=== PATIENT | female | born 1940 | race Caucasian/White ===

== ENCOUNTER 2021-09-12 17:43 | Inpatient (IN) | payer MEDICARE ==
[~2021-09-12] VITALS: Ht 170.2 cm; Wt 84.8 kg
--- NOTE | 2021-09-12 17:45 | NUR ---
SHANE PELAEZ FROM [facility] FOR MEDICAL CLEARANCE PRIOR TO GPS ADMISSION,ON A 5150 HOLD. PLACED COMFORTABLY IN BED. VITALS CHECKED.
[2021-09-12 18:28] LABS: BASOPHILS % (AUTO) 0.9 % (0.0-2.0); EOSINOPHILS % (AUTO) 6.3 % (0.0-6.0); HEMATOCRIT 37 % (33-45); LYMPHOCYTES # (AUTO) 2.1 K/uL (0.8-4.8); LYMPHOCYTES % (AUTO) 40.7 % (20.0-44.0); MEAN CORPUSCULAR HGB CONC 33 g/dl (31.0-36.0); MEAN CORPUSCULAR VOLUME 88 fL (82-100); MONOCYTES # (AUTO) 0.6 K/uL (0.1-1.30); MONOCYTES % (AUTO) 10.8 % (2.0-12.0); NEUTROPHILS # (AUTO) 2.2 K/uL (1.8-8.9); NEUTROPHILS % (AUTO) 41.3 % (43.0-81.0); PLATELET COUNT (AUTO) 346 K/uL (150-450); RED BLOOD CELL COUNT(AUTO) 4.18 MIL/uL (4.0-5.2); WHITE BLOOD COUNT (AUTO) 5.2 K/uL (4.3-11.0)
--- NOTE | 2021-09-12 18:40 | NUR ---
COVID SWAB DONE
--- NOTE | 2021-09-12 18:50 | NUR ---
PATIENT STILL CANNOT PROVIDE URINE SAMPLE DESPITE BEING OFFERED BEDPAN. TRIED DOING IN AND OUT CATHETERIZATION. PATIENT BECAME UPSET. DR JASON MADE AWARE
[2021-09-12 18:55] LABS: CALCIUM, SERUM 9.4 mg/dL (8.5-10.1); CARBON DIOXIDE 25 mmol/L (21-32); CHLORIDE 105 mmol/L (98-107); CREATININE 0.8 mg/dL (0.6-1.3); GLUCOSE 103 mg/dL (74-106); POTASSIUM 3.6 mmol/L (3.5-5.1); SODIUM SERUM 141 mmol/L (136-145); UREA NITROGEN, BLOOD 11 mg/dL (7-18)
[2021-09-12 18:59] LABS: ALANINE AMINOTRANSFERASE 10 U/L (12-78); ALBUMIN 3.6 g/dL (3.4-5.0); ALCOHOL, BLOOD < 3 mg/dL (0-0); ALKALINE PHOSPHATASE 119 U/L (46-116); ASPARTATE AMINOTRANSFERASE 28 U/L (15-37); BILIRUBIN,DIRECT 0.1 mg/dL (0.0-0.2); BILIRUBIN,TOTAL 0.3 mg/dL (0.2-1.0); TOTAL PROTEIN, SERUM 7.6 g/dL (6.4-8.2)
--- NOTE | 2021-09-12 19:06 | NUR ---
WILL OFFER PATIENT BEDPAN AGAIN
--- NOTE | 2021-09-12 19:28 | NUR ---
urine collected and sent to lab
[2021-09-12 19:53] LABS: BILIRUBIN,URINE SMALL (NEGATIVE); COLOR,URINE YELLOW (YELLOW); LEUKOCYTE ESTERASE ,URINE NEGATIVE (NEGATIVE); NITRITE, URINE POSITIVE (NEGATIVE); PROTEIN,URINE TRACE mg/dl (NEGATIVE); UGLUCOSE NEGATIVE (NEGATIVE)
--- NOTE | 2021-09-12 22:30 | NUR ---
CALLED [facility] FOR POSSIBLE TRANSFER OF THE PATIENT TO THEIR PSYCHIATRIC UNIT. PER VALERIE, PULMONARY NURSE PRACTITIONER NO FEMALE BED AVAILABLE
[2021-09-13 08:17] LABS: RBC,URINE 0-2 /HPF (0-2)
[2021-09-13 08:18] LABS: BACTERIA,URINE Few /HPF (None Seen); MUCUS,URINE Moderate /LPF (None Seen); SQUAMOUS EPITHELIAL CELL,UR Few /HPF (None Seen)
--- NOTE | 2021-09-13 08:34 | NUR ---
Awake, Quietly lying in querney. Uncommunicarive -NOT responding to questions stares but NOT answering, Mumbles. Moves/withraws extremities but NOT to command Nurse Knowledge Exchange with SURI Ness. Dr mcknight Aware of BP w/orders for meds
[2021-09-13] MEDS ORDERED: AMLODIPINE BESYLATE 5 MG TABLET ONE (08:49)
--- NOTE | 2021-09-13 08:49 | NUR ---
JOSELITO discussed possible admission to [facility] Nursing Sup.Lucia. Per nursing engine assembly supervisor, the pt. will be admitted to [facility]. JOSELITO notified ED, [place].
--- NOTE | 2021-09-13 08:59 | NUR ---
Medicated with norvasc - pt spat out some of the meds states "its nasty"
[2021-09-13] MEDS ORDERED: AMLODIPINE BESYLATE 5 MG TABLET PO ONE (09:00)
--- NOTE | 2021-09-13 09:45 | NUR ---
RN-ADMISSION NOTES PATIENT WAS BROUGHT IN THE UNIT [facility]IA [facility] WITH TWO [facility] ER STAFF. UPON FACE TO FACE INTERVIEW ,PATIENT AWAKE,ALERT X1 REFUSED TO ANSWER (SELECTIVELY MUTE) MOST OF THE BANK RECONCILIATOR QUESTIONS. PATIENT ON 5150 HOLD FOR DTO AND GD ADULT. PER HOLD PATIENT IS COMBATIVE, DISORIENTED ,REFUSING MEDS. AND CARE NOT SLEEPING AT NIGHT YELLING ,BANGING BARNES AND HEARING VOICES AT THE FACILITY. PATIENT IS UNCOOPERATIVE REFUSED MRSA SWAB DURING THE ADMISSION PROCESS. PATIENT IS A POOR HISTORIAN DAUGHTER NITO [phone] GAVE SOME INFORMATION ABOUT THE PATIENT. PER DTR PATIENT REFUSED COVID VACCINE AND THAT NITO STATED "NO ONE GET COVID VACCINE IN THEIR FAMILY".RUBIA ALMEIDA (PSYCHIATRIST COVERING FOR DR. MEREDITH) AND DR. LAUREN ( CYBER TRANSPORT SYSTEMS SPECIALIST) MADE AWARE OF THE ADMISSION. PATIENT WAS IN BED AWAKE,GUARDED,NO ACUTE DISTRESS NOTED. VITAL SIGNS BP 159/91,P 91,R 18. AND O2 SAT 98% RA.
[2021-09-13] MEDS ORDERED: METO-357 PO (10:07)
[2021-09-13] MEDS ORDERED: HALO2TAB PO (10:07)
[2021-09-13] MEDS ORDERED: ATOR40TA PO (10:07)
[2021-09-13] MEDS ORDERED: LOSA100T31 PO (10:07)
[2021-09-13] MEDS ORDERED: QUET300T2 PO (10:07)
[2021-09-13] MEDS ORDERED: MIRT-119 PO (10:07)
[2021-09-13] MEDS ORDERED: ASPI-1169 PO (10:07)
[2021-09-13] MEDS ORDERED: clonazePAM 0.5 MG TABLET PO PRN (10:30)
[2021-09-13] MEDS ORDERED: BLOOD SUGAR DIAGNOSTIC 1 EACH STRIP IN ONE (10:30)
[2021-09-13] MEDS ORDERED: MAG HYDROX/AL HYDROX/SIMETH 30 ML UDC PO PRN (10:30)
[2021-09-13] MEDS ORDERED: ACETAMINOPHEN 325 MG TABLET PO PRN (10:30)
--- NOTE | 2021-09-13 10:37 | NUR ---
RN-NOTES RUBIA ALMEIDA (COVERING FOR DR. MEREDITH)PSYCHIATRIST MADE AWARE OF THE PATIENT ADMISSION,AND STATED HE WILL SEE THE PATIENT TOMORROW. DR. LAUREN ALSO MADE AWARE( COMPONENT LAB TECH) OF THE ADMISSION.
--- NOTE | 2021-09-13 10:42 | NUR ---
JOSELITO Initial Discharge Plan: Patient currently resides at [facility] located at [address] [place] [address]; ([phone]). JOSELITO spoke with admin Maycol ([phone]) who stated that they are unable to take care of pt and that pt needs a nursing facility. Maycol reported that daughter Turner ([phone]) wants a nursing facility. JOSELITO will work with the MD, treatment team, and family to help coordinate appropriate discharge.
--- NOTE | 2021-09-13 10:42 | NUR ---
JOSELITO Family Contact: JOSELITO contacted pt's daughter Turner ([phone]) and discussed treatment plan. Daughter stated that pt cannot return back to her B & C due to pt requiring higher level of care. Daughter expressed if this curriculum writer can help with placement. SW reported she will help with placement and will give nursing facility options.
--- NOTE | 2021-09-13 10:43 | NUR ---
JOSELITO Clinical Note: Patient placed on a 5150 hold for GD and danger to others. Pt was aggressive at her B & C and was non-compliant with her medications. Patient currently resides at [facility] and [facility] called [facility] located at [address] [place] [address]; ([phone]). JOSELITO spoke with admin Maycol ([phone]) who stated that they are unable to take care of pt and that pt needs a nursing facility. Maycol reported that daughter Turner ([phone]) wants a nursing facility. JOSELITO spoke with pt's daughter Turner ([phone]) and she reported that she would want pt to go to a nursing facility.
[2021-09-13 16:00] VITALS: BP 163/91
--- NOTE | 2021-09-13 18:23 | NUR ---
RN-NOTES PATIENT LAYING IN BED AWAKE,ALERT X1,GUARDED,SELECTIVELY MUTE AT THIS TIME. PATIENT REFUSED TO EAT DESPITE THE ENCOURAGEMENT,EXPLANATIONS RISK AND BENEFITS . PATIENT ABLE TO TALK IF SHE WANT TOO WITH CLEAR SPEECH.GOOD KARI CARE RENDERED. PATIENT INDEPENDENTLY MOVING IN BED. ALL NEEDS ATTENDED AND ANTICIPATED.WILL CONT. MONITORING FOR SAFETY AND BEHAVIOR. WILL ENDORSE TO INCOMING NURSE FOR CONTINUITY OF CARE.
[2021-09-13 20:00] VITALS: BP 140/82
--- NOTE | 2021-09-13 20:05 | NUR ---
RN NOTES: PATIENT IN BED RESTING , NO S/SX OF ACUTE DISTRESS NOTED. EASILY AGITATED, PARANOID, DISORGNIZED, DISHEVELED, UNKEMPT ,ENCOURAGED PT. TO VERBALIZATION OF THOUGHTS AND FEELINGS. SAFETY PRECAUTIONS IN PLACE. WILL CONTINUE TO MONITOR Q15MIN ROUNDS FOR SAFETY AND BEHAVIOR.
[2021-09-13] MEDS: ATORVASTATIN 40 MG TABLET PO SCH (21:18)
--- NOTE | 2021-09-14 06:47 | NUR ---
RN NOTES: PT. REFUSED LABS WORK DRAW, DESPITE EXPLAINING THE IMPORTANCE. PT. STRONGLY REFUSED .PT. BEHAVIOR UNCOOERTIVE ,PARANOID ,TRYING TO HITTING THE STAFF , ALL NEEDS ATTENDED AND ANTICIPATED ,WILL CONTINUITY WITH CARE
[2021-09-14 08:00] VITALS: BP 162/77
[2021-09-14] MEDS: ENSURE ENLIVE CHOC 237 ML CAN PO SCH ×2 (08:00→17:00)
[2021-09-14] MEDS ORDERED: Medication Not On Formulary EA (Losartan Potassium 100 MG) PO SCH (09:00)
[2021-09-14] MEDS: ASPIRIN 81 MG TAB.CHEW PO SCH (09:00)
[2021-09-14] MEDS: LOSARTAN POTASSIUM 50 MG TABLET PO SCH (09:00)
[2021-09-14] MEDS: METOPROLOL SUCCINATE 50 MG TAB.SR.24H PO SCH (09:00)
--- NOTE | 2021-09-14 10:22 | NUR ---
RN-NOTES PATIENT REFUSED TO EAT BREAKFAST AND ALL 0900 AM MEDICATIONS DESPITE ENCOURAGEMENT,EXPLANATIONS RISK AND BENEFITS. BP 162/77,P 72. STATED "I DON'T WANT TO PUT ANYTHING IN MY STOMACH". OFFERED X3. DR. LAUREN MADE AWARE OF THE REFUSAL.
[2021-09-14 16:00] VITALS: BP 163/86
[2021-09-14 17:25] LABS: ALBUMIN 3.6 g/dL (3.4-5.0); BILIRUBIN,TOTAL 0.4 mg/dL (0.2-1.0); CALCIUM, SERUM 9.7 mg/dL (8.5-10.1); CREATININE 0.9 mg/dL (0.6-1.3); POTASSIUM 3.8 mmol/L (3.5-5.1); TOTAL PROTEIN, SERUM 8.1 g/dL (6.4-8.2)
[2021-09-14 17:27] LABS: CHOLESTEROL 214 mg/dL (<200); HDL CHOLESTEROL 57 mg/dL (40-60); LDL 131 mg/dL (0-99); TRIGLYCERIDES 77 mg/dL (30-150)
[2021-09-14] MEDS: Z GUARD REMEDY 4 OZ OINT TP SCH (18:13)
--- NOTE | 2021-09-14 18:53 | NUR ---
RN-NOTES PATIENT LAYING IN BED AWAKE,ALERT X1,GUARDED,MINIMAL INTERACTIONS WITH STAFF. PATIENT REFUSED TO EAT BREAKFAST AND LUNCH DESPITE THE ENCOURAGEMENT . NOTED WITH AGGRESSIVE( HITTING) BEHAVIOR TOWARDS STAFF DURING CARE . NON COMPLIANT WITH MEDICATIONS .PATIENT INDEPENDENTLY MOVING IN BED. ALL NEEDS ATTENDED AND ANTICIPATED.WILL CONT. MONITORING FOR SAFETY AND BEHAVIOR. WILL ENDORSE TO INCOMING NURSE FOR CONTINUITY OF CARE.
--- NOTE | 2021-09-14 19:58 | NUR ---
RN NOTES: PATIENT IN BED RESTING , NO S/SX OF ACUTE DISTRESS NOTED. EASILY AGITATED,AGGRESSIVE BEHAVIOR TOWARDS STAFF DURING CARE , PARANOID, DISORGNIZED, DISHEVELED, UNKEMPT, NON COMPLY WITH CARE ,ENCOURAGED PT. TO VERBALIZATION OF THOUGHTS AND FEELINGS. SAFETY PRECAUTIONS IN PLACE. WILL CONTINUE TO MONITOR Q15MIN ROUNDS FOR SAFETY AND BEHAVIOR.
[2021-09-14 20:00] VITALS: BP 143/82
[2021-09-14] MEDS: QUETIAPINE FUMARATE 100 MG TABLET PO SCH (21:23)
[2021-09-14] MEDS: ATORVASTATIN 40 MG TABLET PO SCH (21:24)
--- NOTE | 2021-09-14 21:33 | NUR ---
RN NOTES: ENCOURAGED PT. TO TAKE NIGHT PO SCHEDULE MEDS , PT. TOOK PO NIGHT MEDS, PT. COMPLIANT WITH MEDS AT THIS TIME, OFFER SNACKS PO FLUIDS TOLERATE , PT. EATING INDEPDENTLY , PER PT. I LIKED SNACKS.
[2021-09-15 08:00] VITALS: BP 149/74
[2021-09-15] MEDS: ENSURE ENLIVE CHOC 237 ML CAN PO SCH ×2 (08:00→17:00)
--- NOTE | 2021-09-15 08:50 | NUR ---
GPS/RN RECEIVED PT RESTING IN HER BED EASILY AROUSED, GUARDED MINIMAL INTERACTIONS WITH STAFF. PT REFUSED BREAKFAST AND AM MEDS .NEEDS MINIMAL ASSIST WITH ADL'S. ABLE TO MOVE INDEPENDENTLY IN THE BED.ALL NEEDS ATTENDED AND ANTICIPATED. WILL CONTINUE TO MONITOR Q15MIN FOR SAFETY AND BEHAVIOR.
[2021-09-15] MEDS: ASPIRIN 81 MG TAB.CHEW PO SCH (09:00)
[2021-09-15] MEDS: METOPROLOL SUCCINATE 50 MG TAB.SR.24H PO SCH (09:00)
[2021-09-15] MEDS: LOSARTAN POTASSIUM 50 MG TABLET PO SCH (09:00)
[2021-09-15] MEDS: QUETIAPINE FUMARATE 100 MG TABLET PO SCH ×2 (09:00→17:00)
--- NOTE | 2021-09-15 10:13 | NUR ---
GPS/RN PT REFUSED AM MEDS OFFERED X3. PT NOT RESPONDING TO NURSING STUFF AND MD. NO ACUTE DISTRESS NOTED. VSS.
[2021-09-15] MEDS: Z GUARD REMEDY 4 OZ OINT TP SCH ×2 (13:19→18:30)
[2021-09-15 16:00] VITALS: BP 147/80
[2021-09-15 20:12] VITALS: BP_SYST 139; BP_SYST 154; BP_DIAS 74; BP_DIAS 90
[2021-09-15] MEDS: ATORVASTATIN 40 MG TABLET PO SCH (21:30)
[2021-09-16 08:00] VITALS: BP 150/77
[2021-09-16] MEDS: ENSURE ENLIVE CHOC 237 ML CAN PO SCH ×2 (08:00→17:00)
[2021-09-16] MEDS: ASPIRIN 81 MG TAB.CHEW PO SCH (08:32)
[2021-09-16] MEDS: Z GUARD REMEDY 4 OZ OINT TP SCH ×2 (08:32→21:45)
[2021-09-16] MEDS: METOPROLOL SUCCINATE 50 MG TAB.SR.24H PO SCH (08:33)
[2021-09-16] MEDS: LOSARTAN POTASSIUM 50 MG TABLET PO SCH (08:33)
[2021-09-16] MEDS: QUETIAPINE FUMARATE 100 MG TABLET PO SCH ×2 (08:33→17:00)
[2021-09-16 16:00] VITALS: BP 148/69
--- NOTE | 2021-09-16 19:44 | NUR ---
GPS RN OPENING NOTES: RECEIVED PATIENT LAYING IN BED, AWAKE, A/O X1, FLAT AFFECT, PASSIVE, WITHDRAWN, ISOLATIVE, DISORGANIZED, CONFUSED, NO S/S OF DISTRESS. RESPIRATION EVEN AND UNLABORED WITH EQUAL RISE AND FALL OF THE CHEST, ON ROOM AIR. OFFERED FLUID AND SNACKS TOLERATED. BED IN LOW LOCKED POSITION, SIDE RAILS UP X2 FOR SAFETY, CALL BOYD WITHIN REACH. WILL CONTINUE TO MONITOR Q15 FOR MOOD, SAFETY AND BEHAVIOR.
[2021-09-16 20:14] VITALS: BP 145/72
[2021-09-16] MEDS: ATORVASTATIN 40 MG TABLET PO SCH (22:00)
--- NOTE | 2021-09-16 22:29 | NUR ---
GPS RN NOTES: PATIENT SPIT OUT 2200 LIPITOR 40MG PO ORDERED THEN TOLD NURSE "YOU TAKE IT". MEDICATION WASTED PER PROTOCOL.
--- NOTE | 2021-09-16 23:31 | NUR ---
GPS RN NOTES: PATIENT REFUSED WEEKLY SKIN ASSESSMENT. PER PATIENT "DON'T TOUCH ME".
--- NOTE | 2021-09-17 06:51 | NUR ---
GPS RN CLOSING NOTES: PATIENT CURRENTLY SLEEPING IN BED. PATIENT SLEPT 9HRS THIS SHIFT. NO S/S OF DISTRESS. RESPIRATION EVEN AND UNLABORED WITH EQUAL RISE AND FALL OF THE CHEST, ON ROOM AIR. BED IN LOW LOCKED POSITION, SIDE RAILS UP X2 FOR SAFETY, CALL BOYD WITHIN REACH. ALL PATIENT CARE NEEDS HAVE BEEN MET ANTICIPATED. WILL CONTINUE TO MONITOR Q15 FOR SAFETY, MOOD AND BEHAVIOR AND ENDORSE TO AM SHIFT.
[2021-09-17 08:00] VITALS: BP 134/61
[2021-09-17] MEDS: ENSURE ENLIVE CHOC 237 ML CAN PO SCH ×3 (08:00→16:05)
[2021-09-17] MEDS: LOSARTAN POTASSIUM 50 MG TABLET PO SCH (08:20)
[2021-09-17] MEDS: ASPIRIN 81 MG TAB.CHEW PO SCH (08:20)
[2021-09-17] MEDS: METOPROLOL SUCCINATE 50 MG TAB.SR.24H PO SCH (08:21)
[2021-09-17] MEDS: QUETIAPINE FUMARATE 100 MG TABLET PO SCH ×2 (08:22→16:04)
--- NOTE | 2021-09-17 09:13 | NUR ---
RN-CO: Patient is awake, denied pain and discomforts. Refused all her morning medications inspite of my encouragment. She is confused and needs assistance with ADL. We will continue to monitor.
[2021-09-17] MEDS: Z GUARD REMEDY 4 OZ OINT TP SCH ×2 (09:23→17:44)
--- NOTE | 2021-09-17 13:27 | NUR ---
RN-CO: Patient is awake, denied pain and discomforts. Refused all her morning medications in spite of my encouragement. She is confused and needs assistance with ADL. DR Avilez seen and examined the patient and filed the [place] petition. RN faxed it to [address] this morning.
[2021-09-17 16:00] VITALS: BP 138/94
--- NOTE | 2021-09-17 19:48 | NUR ---
GPS RN OPENING NOTES: RECEIVED PATIENT SITTING IN YING CHAIR IN HALLWAY. A/O X1, FLAT AFFECT, PASSIVE, WITHDRAWN, DISORGANIZED, CONFUSED, GIVES INAPPROPRIATE ANSWERS TO QUESTIONS AND SMILES. NO S/S OF DISTRESS. RESPIRATION EVEN AND UNLABORED WITH EQUAL RISE AND FALL OF THE CHEST, ON ROOM AIR. OFFERED FLUID AND SNACKS TOLERATED. WILL CONTINUE TO MONITOR Q15 FOR MOOD, SAFETY AND BEHAVIOR.
[2021-09-17] MEDS: ATORVASTATIN 40 MG TABLET PO SCH (22:00)
--- NOTE | 2021-09-17 22:08 | NUR ---
GPS RN NOTES: PATIENT REFUSED 2200 LIPITOR 40MG PO ORDERED. MEDICATION RETURNED TO [facility].
[2021-09-17 22:21] VITALS: BP 140/96
[2021-09-18 06:35] VITALS: BP 140/96
--- NOTE | 2021-09-18 07:00 | NUR ---
GPS RN CLOSING NOTES: PATIENT CURRENTLY SLEEPING IN BED. PATIENT SLEPT 5HRS THIS SHIFT. NO S/S OF DISTRESS. RESPIRATION EVEN AND UNLABORED WITH EQUAL RISE AND FALL OF THE CHEST, ON ROOM AIR. BED IN LOW LOCKED POSITION, SIDE RAILS UP X2 FOR SAFETY, CALL BOYD WITHIN REACH. ALL PATIENT CARE NEEDS HAVE BEEN MET ANTICIPATED. WILL CONTINUE TO MONITOR Q15 FOR SAFETY, MOOD AND BEHAVIOR AND ENDORSE TO AM SHIFT.
[2021-09-18 08:00] VITALS: BP 150/79
[2021-09-18] MEDS: ENSURE ENLIVE CHOC 237 ML CAN PO SCH ×2 (08:00→16:58)
[2021-09-18] MEDS: LOSARTAN POTASSIUM 50 MG TABLET PO SCH (08:19)
[2021-09-18] MEDS: ASPIRIN 81 MG TAB.CHEW PO SCH (08:19)
[2021-09-18] MEDS: METOPROLOL SUCCINATE 50 MG TAB.SR.24H PO SCH (08:20)
[2021-09-18] MEDS: Z GUARD REMEDY 4 OZ OINT TP SCH ×2 (08:22→16:18)
[2021-09-18] MEDS: QUETIAPINE FUMARATE 100 MG TABLET PO SCH ×3 (09:00→16:19)
--- NOTE | 2021-09-18 14:10 | NUR ---
COURT: JOSELITO SPOKE WITH COURT ([phone]) AND SPOKE WITH CHRIS WHO STATED RIESE WILL BE SCHEDULED AT 9:30AM.
--- NOTE | 2021-09-18 14:18 | NUR ---
in dining rm. most of day,quiet.
[2021-09-18 16:00] VITALS: BP 133/90
--- NOTE | 2021-09-18 19:35 | NUR ---
GPS RN OPENING NOTES: RECEIVED PATIENT SITTING IN YING CHAIR IN HALLWAY. A/O X1, FLAT AFFECT, PASSIVE, WITHDRAWN, DISORGANIZED, CONFUSED, GIVES INAPPROPRIATE ANSWERS TO QUESTIONS, DIFFICULT TO REDIRECT. PATIENT CONDITION REMAINS THE SAME. NO S/S OF DISTRESS. RESPIRATION EVEN AND UNLABORED WITH EQUAL RISE AND FALL OF THE CHEST, ON ROOM AIR. OFFERED FLUID AND SNACKS TOLERATED. WILL CONTINUE TO MONITOR Q15 FOR MOOD, SAFETY AND BEHAVIOR.
[2021-09-18] MEDS: ATORVASTATIN 40 MG TABLET PO SCH (22:00)
--- NOTE | 2021-09-18 22:03 | NUR ---
GPS RN NOTES: PATIENT REFUSED 2200 LIPITOR 40MG PO ORDERED.
[2021-09-18 23:44] VITALS: BP 118/82
--- NOTE | 2021-09-19 06:58 | NUR ---
GPS RN CLOSING NOTES: PATIENT CURRENTLY SLEEPING IN BED. PATIENT SLEPT 8HRS THIS SHIFT. NO S/S OF DISTRESS. RESPIRATION EVEN AND UNLABORED WITH EQUAL RISE AND FALL OF THE CHEST, ON ROOM AIR. BED IN LOW LOCKED POSITION, SIDE RAILS UP X2 FOR SAFETY, CALL BOYD WITHIN REACH. ALL PATIENT CARE NEEDS HAVE BEEN MET ANTICIPATED. WILL CONTINUE TO MONITOR Q15 FOR SAFETY, MOOD AND BEHAVIOR AND ENDORSE TO AM SHIFT.
[2021-09-19 08:00] VITALS: BP 149/63
[2021-09-19] MEDS: ENSURE ENLIVE CHOC 237 ML CAN PO SCH ×2 (08:00→16:41)
[2021-09-19] MEDS: METOPROLOL SUCCINATE 50 MG TAB.SR.24H PO SCH (08:06)
[2021-09-19] MEDS: ASPIRIN 81 MG TAB.CHEW PO SCH (08:06)
[2021-09-19] MEDS: QUETIAPINE FUMARATE 100 MG TABLET PO SCH ×2 (08:07→17:00)
[2021-09-19] MEDS: LOSARTAN POTASSIUM 50 MG TABLET PO SCH (08:07)
--- NOTE | 2021-09-19 09:51 | NUR ---
RN-CO: RECEIVED A TELEPHONE ORDER FROM DR MEREDITH. PATIENT IS RIESED, GIVE HALDOL 5 MG IM PRN EACH REFUSAL OF SEROQUEL PO BID., NOTED AND CARRIED OUT.
[2021-09-19] MEDS: Z GUARD REMEDY 4 OZ OINT TP SCH ×2 (09:55→16:43)
[2021-09-19] MEDS: HALOPERIDOL LACTATE INJ 5 MG/ML VIAL IM PRN ×2 (12:25→17:45)
--- NOTE | 2021-09-19 12:25 | NUR ---
RN-CO: Patient is delusional and paranoid, she believes her daughter needs the medicine that is suppose to be hers. She has flight of ideas. Haldol 5 mg IM was given because she refused Seroquel by mouth.
[2021-09-19 16:00] VITALS: BP 140/88
--- NOTE | 2021-09-19 19:13 | NUR ---
GP RN NOTES RECEIVED PATIENT IN THE DINING ROOM SITTING IN YING CHAIR. ALERT AND ORIENTED X1, NO S/SX OF ACUTE DISTRESS NOTED. PATIENT REMAINS CONFUSED, PASSIVE, DISORGANIZED, REDIRECTABLE. SAFETY PRECAUTIONS IN PLACE. WILL CONTINUE TO MONITOR Q15 MIN ROUNDS FOR SAFETY AND BEHAVIOR.
[2021-09-19 20:00] VITALS: BP 143/76
[2021-09-19] MEDS: ATORVASTATIN 40 MG TABLET PO SCH (21:22)
--- NOTE | 2021-09-19 21:22 | NUR ---
GPS RN NOTES PATIENT REFUSED LIPITOR DOSE FOR TONIGHT. EXPLAINED RISKS/BENEFITS. PATIENT CONTINUED TO REFUSE.
[2021-09-20 08:00] VITALS: BP 146/71
[2021-09-20] MEDS: ENSURE ENLIVE CHOC 237 ML CAN PO SCH ×2 (08:00→16:23)
[2021-09-20] MEDS: METOPROLOL SUCCINATE 50 MG TAB.SR.24H PO SCH (09:00)
[2021-09-20] MEDS: LOSARTAN POTASSIUM 50 MG TABLET PO SCH (09:00)
[2021-09-20] MEDS: QUETIAPINE FUMARATE 100 MG TABLET PO SCH ×2 (09:00→16:20)
[2021-09-20] MEDS: ASPIRIN 81 MG TAB.CHEW PO SCH (09:00)
[2021-09-20] MEDS: Z GUARD REMEDY 4 OZ OINT TP SCH ×2 (09:24→17:21)
[2021-09-20] MEDS: HALOPERIDOL LACTATE INJ 5 MG/ML VIAL IM PRN (10:21)
--- NOTE | 2021-09-20 10:22 | NUR ---
RN-NOTES PATIENT REFUSED ALL 0900AM MEDICATIONS INCLUDING SEROQUEL 300MG P.O DESPITE EXPLANATIONS RISK AND BENEFITS. HALDOL 5MG IM GIVEN ORDERED. PATIENT IS RIESED. GIVEN AT THE RIGHT BUTTOCK.
[2021-09-20 16:00] VITALS: BP 139/63
--- NOTE | 2021-09-20 17:22 | NUR ---
RN-NOTES PATIENT IN THE DAY ROOM AWAKE,ALERT X1,GUARDED,CALM AND QUIET.TOOK 1700 P.O MEDICATIONS. PATIENT INDEPENDENTLY MOVING IN BED. NEEDS MINIMAL ASSIST WITH AMBULATIONS. ALL NEEDS ATTENDED AND ANTICIPATED.WILL CONT. MONITORING FOR SAFETY AND BEHAVIOR. WILL ENDORSE TO INCOMING NURSE FOR CONTINUITY OF CARE.
[2021-09-20 20:00] VITALS: BP 128/85
--- NOTE | 2021-09-20 20:41 | NUR ---
RN NOTES: PATIENT WATCHING TV IN ACTIVITY ROOM , NO S/SX OF ACUTE DISTRESS NOTED. EASILY AGITATED , PARANOID, DISORGNIZED, DISHEVELED, UNKEMPT, ,ENCOURAGED PT. TO VERBALIZATION OF THOUGHTS AND FEELINGS. SAFETY PRECAUTIONS IN PLACE. WILL CONTINUE TO MONITOR Q15MIN ROUNDS FOR SAFETY AND BEHAVIOR.
[2021-09-20] MEDS: ATORVASTATIN 40 MG TABLET PO SCH (21:16)
[2021-09-21 08:00] VITALS: BP 132/61
[2021-09-21] MEDS: ENSURE ENLIVE CHOC 237 ML CAN PO SCH ×2 (08:08→16:58)
--- NOTE | 2021-09-21 08:45 | NUR ---
SNF Referral: JOSELITO sent clinicals to [facility] ([phone]) for placement in the [place] location, per family request. JOSELITO sent H & P, progress notes, and medication list.
[2021-09-21] MEDS: ASPIRIN 81 MG TAB.CHEW PO SCH (08:50)
[2021-09-21] MEDS: QUETIAPINE FUMARATE 100 MG TABLET PO SCH ×2 (08:50→16:56)
[2021-09-21] MEDS: LOSARTAN POTASSIUM 50 MG TABLET PO SCH (08:59)
[2021-09-21] MEDS: METOPROLOL SUCCINATE 50 MG TAB.SR.24H PO SCH (09:00)
[2021-09-21] MEDS: Z GUARD REMEDY 4 OZ OINT TP SCH ×2 (09:01→16:58)
--- NOTE | 2021-09-21 09:23 | NUR ---
SNF Contact: SW received a call from Slime cheng from [facility] ([phone]) who stated that pt is accepted.
[2021-09-21 16:00] VITALS: BP 119/59
--- NOTE | 2021-09-21 17:27 | NUR ---
RN-NOTES PATIENT IN THE DAY ROOM AWAKE,ALERT X1,GUARDED,CALM AND QUIET.COMPLIANT WITH P.O MEDICATIONS. PATIENT INDEPENDENTLY MOVING IN BED. NEEDS MINIMAL ASSIST WITH AMBULATIONS. ALL NEEDS ATTENDED AND ANTICIPATED.WILL CONT. MONITORING FOR SAFETY AND BEHAVIOR. WILL ENDORSE TO INCOMING NURSE FOR CONTINUITY OF CARE.
[2021-09-21 20:00] VITALS: BP 113/64
--- NOTE | 2021-09-21 20:59 | NUR ---
RN NOTE: PATIENT AWAKE ALERT , NO S/SX OF ACUTE DISTRESS NOTED.ANXIOUS EASILY AGITATED , PARANOID, DISORGNIZED,GUARDED UNKEMPT,NEEDS FREQUENTLY REDIRECTIONS ,ENCOURAGED PT. TO VERBALIZATION OF THOUGHTS AND FEELINGS. SAFETY PRECAUTIONS IN PLACE. WILL CONTINUE TO MONITOR Q15MIN ROUNDS FOR SAFETY AND BEHAVIOR.
[2021-09-21] MEDS: ATORVASTATIN 40 MG TABLET PO SCH (21:04)
--- NOTE | 2021-09-22 06:34 | NUR ---
RN NOTE: PATIENT SLEPT 7 HRS THIS SHIFT , NO S/SX OF ACUTE DISTRESS NOTED.ANXIOUS EASILY AGITATED , PARANOID, DISORGNIZED,GUARDED ,NEEDS FREQUENTLY REDIRECTIONS ,ALL NEEDS ATTENDED AND ANTICIPATED ,ENCOURAGED PT. TO VERBALIZATION OF THOUGHTS AND FEELINGS. SAFETY PRECAUTIONS IN PLACE. WILL CONTINUE TO MONITOR Q15MIN ROUNDS FOR SAFETY AND BEHAVIOR.
[2021-09-22 08:04] VITALS: BP 115/67
[2021-09-22] MEDS: ENSURE ENLIVE CHOC 237 ML CAN PO SCH ×2 (08:12→17:17)
[2021-09-22] MEDS: LOSARTAN POTASSIUM 50 MG TABLET PO SCH (08:13)
[2021-09-22] MEDS: ASPIRIN 81 MG TAB.CHEW PO SCH (08:13)
[2021-09-22] MEDS: METOPROLOL SUCCINATE 50 MG TAB.SR.24H PO SCH (08:13)
[2021-09-22] MEDS: QUETIAPINE FUMARATE 100 MG TABLET PO SCH ×2 (08:13→16:26)
[2021-09-22] MEDS: Z GUARD REMEDY 4 OZ OINT TP SCH ×2 (08:50→16:26)
--- NOTE | 2021-09-22 09:30 | NUR ---
RN Notes: Received pt. asleep in the ramírez chair in the hallway and sign of distress noted. Ate 25% for breakfast and compliant on meds. Pt. is confused and disoriented and morning care rendered. Pt. reoriented to person, place, date, day and situation. Will continue to monitor for safety.
[2021-09-22 16:00] VITALS: BP 124/63
--- NOTE | 2021-09-22 20:26 | NUR ---
RN Notes: Pt Received in the ramírez chair in the hallway awaked calm and quit no sign sob/distress noted.nno sign of harm self or others.safety measure in place.Will continue to monitor.
[2021-09-22] MEDS: ATORVASTATIN 40 MG TABLET PO SCH (21:06)
[2021-09-23 00:16] VITALS: BP 115/68
[2021-09-23] MEDS: ENSURE ENLIVE CHOC 237 ML CAN PO SCH ×3 (08:00→17:28)
[2021-09-23] MEDS: QUETIAPINE FUMARATE 100 MG TABLET PO SCH ×2 (09:00→16:09)
[2021-09-23] MEDS: LOSARTAN POTASSIUM 50 MG TABLET PO SCH (09:00)
[2021-09-23] MEDS: Z GUARD REMEDY 4 OZ OINT TP SCH ×2 (09:00→16:05)
[2021-09-23] MEDS: METOPROLOL SUCCINATE 50 MG TAB.SR.24H PO SCH (09:00)
[2021-09-23] MEDS: ASPIRIN 81 MG TAB.CHEW PO SCH (09:00)
[2021-09-23] MEDS: HALOPERIDOL LACTATE INJ 5 MG/ML VIAL IM PRN ×2 (10:57→16:10)
--- NOTE | 2021-09-23 11:12 | NUR ---
RN-CO: Patient refused breakfast, just woke up and refused all po medications. She is angry and uncooperative to care. Haldol 5 mg IM given for refusing of Seroquel PO.
--- NOTE | 2021-09-23 11:32 | NUR ---
RN-CO: Patient is combative and refused morning care.
--- NOTE | 2021-09-23 15:40 | NUR ---
RN-CO: Patient refused vital signs, she is agitated at this time .
--- NOTE | 2021-09-23 16:10 | NUR ---
RN-CO: HALDOL 5 MG IM GIVEN FOR REFUSAL OF SEROQUEL 300 MG PO.
--- NOTE | 2021-09-23 16:50 | NUR ---
RN-CO: Patient refused vital sign.
[2021-09-23 17:02] VITALS: BP 156/91
[2021-09-23 19:46] VITALS: BP 133/59
[2021-09-23] MEDS: ATORVASTATIN 40 MG TABLET PO SCH (21:44)
[2021-09-23] MEDS: TEMAZEPAM 7.5 MG CAPSULE PO PRN (21:44)
[2021-09-24 08:00] VITALS: BP 110/59
[2021-09-24] MEDS: ENSURE ENLIVE CHOC 237 ML CAN PO SCH ×2 (08:00→17:00)
[2021-09-24] MEDS: ASPIRIN 81 MG TAB.CHEW PO SCH (08:39)
[2021-09-24] MEDS: LOSARTAN POTASSIUM 50 MG TABLET PO SCH (08:40)
[2021-09-24] MEDS: METOPROLOL SUCCINATE 50 MG TAB.SR.24H PO SCH (08:40)
[2021-09-24] MEDS: QUETIAPINE FUMARATE 100 MG TABLET PO SCH ×2 (08:40→17:00)
[2021-09-24] MEDS: Z GUARD REMEDY 4 OZ OINT TP SCH ×2 (08:41→17:00)
[2021-09-24] MEDS: HALOPERIDOL LACTATE INJ 5 MG/ML VIAL IM PRN ×2 (08:46→17:54)
[2021-09-24 16:00] VITALS: BP 139/90
[2021-09-24 19:51] VITALS: BP 126/72
[2021-09-24] MEDS: ATORVASTATIN 40 MG TABLET PO SCH (22:00)
[2021-09-25 08:00] VITALS: BP 121/88
[2021-09-25] MEDS: ENSURE ENLIVE CHOC 237 ML CAN PO SCH ×2 (08:15→17:00)
--- NOTE | 2021-09-25 08:55 | NUR ---
Individual Therapy: SW attempted to conduct therapy. Pt was blankly staring and did not respond to this group underwriter. SW unable to conduct therapy at this time.
[2021-09-25] MEDS: QUETIAPINE FUMARATE 100 MG TABLET PO SCH ×2 (09:04→17:00)
[2021-09-25] MEDS: METOPROLOL SUCCINATE 50 MG TAB.SR.24H PO SCH (09:04)
[2021-09-25] MEDS: ASPIRIN 81 MG TAB.CHEW PO SCH (09:04)
[2021-09-25] MEDS: LOSARTAN POTASSIUM 50 MG TABLET PO SCH (09:05)
[2021-09-25] MEDS: Z GUARD REMEDY 4 OZ OINT TP SCH ×2 (09:06→17:03)
--- NOTE | 2021-09-25 10:14 | NUR ---
RN-CO: Received patient in the hallway in a pleasant mood, she denied pain and discomforts. She took her morning medications which most of the time she was refusing. I will continue to monitor.
[2021-09-25] MEDS ORDERED: HALOPERIDOL DECANOATE IM 100 MG/ML AMPUL IM ONE (13:00)
--- NOTE | 2021-09-25 13:29 | NUR ---
RN-CO: HALDOL DECANOATE 50 MG IM GIVEN ON LEFT DELTOID.
[2021-09-25 16:00] VITALS: BP 116/71
[2021-09-25] MEDS: MAGNESIUM HYDROXIDE 30 ML UDC PO PRN (18:12)
--- NOTE | 2021-09-25 19:12 | NUR ---
GPS RN NOTES RECEIVED PATIENT IN THE HALLWAY SITTING IN A GERIATRIC CHAIR. ALERT AND ORIENTED X1, NO S/SX OF ACUTE DISTRESS NOTED. PATIENT REMAINS CONFUSED, INTERACTIVE WHEN ENGAGED, LABILE. REORIENTATION PROVIDED. SAFETY PRECAUTIONS IN PLACE. WILL CONTINUE TO MONITOR Q15 MIN ROUNDS FOR SAFETY AND BEHAVIOR.
[2021-09-25 19:22] VITALS: BP 143/72
[2021-09-25] MEDS: ATORVASTATIN 40 MG TABLET PO SCH (21:25)
[2021-09-25] MEDS: TEMAZEPAM 7.5 MG CAPSULE PO PRN (23:25)
[2021-09-26] MEDS: ENSURE ENLIVE CHOC 237 ML CAN PO SCH ×2 (07:50→16:04)
[2021-09-26 08:00] VITALS: BP 138/70
[2021-09-26] MEDS: Z GUARD REMEDY 4 OZ OINT TP SCH ×2 (09:00→16:24)
[2021-09-26] MEDS: LOSARTAN POTASSIUM 50 MG TABLET PO SCH (09:23)
[2021-09-26] MEDS: QUETIAPINE FUMARATE 100 MG TABLET PO SCH ×2 (09:23→16:25)
[2021-09-26] MEDS: ASPIRIN 81 MG TAB.CHEW PO SCH (09:24)
[2021-09-26] MEDS: METOPROLOL SUCCINATE 50 MG TAB.SR.24H PO SCH (09:24)
--- NOTE | 2021-09-26 09:29 | NUR ---
JOSELITO Family Contact: SW contacted pt's daughter Turner ([phone]) who stated that pt is accepted at [facility] and she was agreeable of this.
--- NOTE | 2021-09-26 13:35 | NUR ---
RN-CO: Patient is in the dining room , awake, and calm, She is somewhat better. She ate her lunch well.
[2021-09-26 16:00] VITALS: BP 143/81
[2021-09-26] MEDS: MAGNESIUM HYDROXIDE 30 ML UDC PO PRN (17:51)
--- NOTE | 2021-09-26 17:52 | NUR ---
RN-CO: Patient as no bowel movement for 3 days per records. Offered MOM x3 but refused and got agitated.
--- NOTE | 2021-09-26 19:40 | NUR ---
GPS RN OPENING NOTES: RECEIVED PATIENT SITTING IN YING CHAIR IN HALLWAY. A/O X1, PASSIVE, WITHDRAWN, DISORIENTED. WHEN ASKED, HOW ARE YOU FEELING, PATIENT RESPONDED "I FEEL BETTER" AND THEN SMILED. PATIENT WAS INFORMED SHE WILL BE DISCHARGED TOMORROW AND WAS HAPPY SAYING "THANK YOU PAYTON". PATIENT DENIES PAIN, DENIES SI AT THIS TIME. V/S WNL. NO S/S OF DISTRESS. RESPIRATION EVEN AND UNLABORED WITH EQUAL RISE AND FALL OF THE CHEST, ON ROOM AIR. OFFERED FLUID AND SNACKS TOLERATED. WILL CONTINUE TO MONITOR Q15 FOR MOOD, SAFETY AND BEHAVIOR.
[2021-09-26 20:00] VITALS: BP 113/56
[2021-09-26] MEDS: ATORVASTATIN 40 MG TABLET PO SCH (21:21)
--- NOTE | 2021-09-27 06:35 | NUR ---
GPS RN NOTES: COVID SWAB TAKEN AND SENT TO LAB FOR PLACEMENT PURPOSES.
[2021-09-27 08:00] VITALS: BP 135/81
--- NOTE | 2021-09-27 08:00 | NUR ---
JOSELITO Discharge Note: Patient will be discharged to group home facility [facility] located [address] [place] [address]; ([phone]). Circuit Rider spoke with Slime Archeologist ([phone]) who stated patient will be accepted at facility today. Patient is alert and oriented x2 and is not able to plan for self-care. Patient denies any suicidal or homicidal ideations. Patient is aware and agreeable with discharge plans. Patients daughter Turner ([phone]) is aware and agreeable. Patient will continue to follow-up with (Psychiatrist) Dr. Kilgore located at [address] [facility] [address], [place] [address]; ([phone]) and (Powder Nipper) Dr. Pedro located at [address] [facility] [address] [address]; ([phone]). Patient presents with euthymic mood and congruent affect. Addendum: 09/27/21 at 1308 by JOSELITO LAWSON Discharge canceled due to low hypertension
--- NOTE | 2021-09-27 08:53 | NUR ---
Layo Costa URBAN DESIGN CONSULTANT of Dr. Avilez gave an order to d/c hold and d/c to [facility] and to follow up with psych and medical doctors. URBAN DESIGN CONSULTANT reconciled the meds to continue in the facility. Dr. Collins made aware of the discharge and reconciled the meds.
[2021-09-27] MEDS: ENSURE ENLIVE CHOC 237 ML CAN PO SCH ×2 (09:17→16:48)
[2021-09-27] MEDS: ASPIRIN 81 MG TAB.CHEW PO SCH (09:18)
[2021-09-27] MEDS: QUETIAPINE FUMARATE 100 MG TABLET PO SCH ×2 (09:18→16:37)
[2021-09-27] MEDS: LOSARTAN POTASSIUM 50 MG TABLET PO SCH (09:18)
[2021-09-27] MEDS: METOPROLOL SUCCINATE 50 MG TAB.SR.24H PO SCH (09:19)
[2021-09-27] MEDS: Z GUARD REMEDY 4 OZ OINT TP SCH ×2 (09:54→16:48)
--- NOTE | 2021-09-27 12:10 | NUR ---
RN-NOTES NOTED PATIENT IN THE DAY ROOM ,PALE, DROWSY VITAL SIGNS BP 72/35,P100, R15, TEMP 97.6, AND O2 SAT OF 96% RA. DR. MAGANA (GLAZING MACHINE OPERATOR) MADE AWARE WITH T.O ORDER OF CBC,BMP STAT AND IV FLUID OF 0.9% NS BOLUS.
[2021-09-27] MEDS ORDERED: IV NS 0.9% 500 ML BAG IV ONE (13:00)
--- NOTE | 2021-09-27 13:08 | NUR ---
JOSELITO Family Contact: JOSELITO contacted pt's daughter Turner ([phone]) and notified that discharge is canceled due low hypertension and will be tomorrow 09/28.
[2021-09-27] MEDS ORDERED: IV NS 0.9% 500 ML IV ONE (13:30)
--- NOTE | 2021-09-27 13:40 | NUR ---
RN-NOTES PATIENT THE DAY ROOM SLEEPING WITH BREATHING EVEN AND NONLABORED EASILY AROUSED, ON GOING IV FLUID OF 0.9% NS BOLUS,INFUSING WELL.IV SITE ON RIGHT HAND GAUGE #22. ALL NEEDS ATTENDED AND ANTICIPATED. WILL CONT.MONITORING FOR SAFETY AND BEHAVIOR.
[2021-09-27 14:47] LABS: BASOPHILS % (AUTO) 0.2 % (0.0-2.0); EOSINOPHILS % (AUTO) 1.7 % (0.0-6.0); HEMATOCRIT 38 % (33-45); LYMPHOCYTES # (AUTO) 1.6 K/uL (0.8-4.8); LYMPHOCYTES % (AUTO) 19.7 % (20.0-44.0); MEAN CORPUSCULAR HGB CONC 32 g/dl (31.0-36.0); MEAN CORPUSCULAR VOLUME 90 fL (82-100); MONOCYTES # (AUTO) 0.7 K/uL (0.1-1.30); MONOCYTES % (AUTO) 8.5 % (2.0-12.0); NEUTROPHILS # (AUTO) 5.6 K/uL (1.8-8.9); NEUTROPHILS % (AUTO) 69.9 % (43.0-81.0); PLATELET COUNT (AUTO) 246 K/uL (150-450); RED BLOOD CELL COUNT(AUTO) 4.19 MIL/uL (4.0-5.2); WHITE BLOOD COUNT (AUTO) 8.1 K/uL (4.3-11.0)
--- NOTE | 2021-09-27 15:00 | NUR ---
RN-NOTES PATIENT THE DAY ROOM SLEEPING WITH BREATHING EVEN AND NONLABORED EASILY AROUSED, ON GOING IV FLUID OF 0.9% NS BOLUS,INFUSING WELL.WELL TOLERATED.VITAL SIGNS FOLLOWS BP 114/58,P 70,R 16,AND O2 SAT 96% RA. WILL CONT.MONITORING FOR SAFETY AND BEHAVIOR.
[2021-09-27 15:06] LABS: CALCIUM, SERUM 9.5 mg/dL (8.5-10.1); CREATININE 1.2 mg/dL (0.6-1.3); POTASSIUM 4.5 mmol/L (3.5-5.1)
--- NOTE | 2021-09-27 15:24 | NUR ---
RN-NOTES RUBIA ALMEIDA MADE AWARE OF PATIENTS CHANGE OF CONDITION WITH T.O ORDER TO CANCEL THE DISCHARGE TODAY. NOTED AND CARRIED OUT.
[2021-09-27 16:05] VITALS: BP 107/59
--- NOTE | 2021-09-27 17:16 | NUR ---
RN-NOTES DR. MAGANA MADE AWARE OF PATIENT'S LAB RESULTS, STATED THAT PATIENT IS OK TO GO TO SNF FOR TOMORROW.
--- NOTE | 2021-09-27 17:54 | NUR ---
RN-NOTES PATIENT LAYING IN BED AWAKE,ALERT X1,GUARDED,CALM AND QUIET. PATIENT INDEPENDENTLY MOVING IN BED. NEEDS MINIMAL ASSIST WITH AMBULATIONS. ALL NEEDS ATTENDED AND ANTICIPATED.WILL CONT. MONITORING FOR SAFETY AND BEHAVIOR. WILL ENDORSE TO INCOMING NURSE FOR CONTINUITY OF CARE.
--- NOTE | 2021-09-27 18:49 | NUR ---
RN-NOTES PATIENT IN BED AWAKE,ALERT X1 ,CALM NO ACUTE DISTRESS NOTED.PATIENT IS COOPERATIVE WITH CARE ABLE TO INTERACT WITH STAFF. ALL NEEDS ATTENDED AND ANTICIPATED . GOOD KARI CARE RENDERED. WILL CONTINUE MONITORING FOR SAFETY AND BEHAVIOR. WILL ENDORSE TO INCOMING NURSE FOR CONTINUITY OF CARE.
--- NOTE | 2021-09-27 19:30 | NUR ---
GPS RN OPENING NOTE RECEIVED PT IN [facility]. A/O X1. PT STABLE ON ROOM AIR. NO SOB OR S/S OF RESPIRATORY DISTRESS. BREATHING EVEN AND UNLABORED. NO COMPLAINTS OF PAIN AT THIS TIME. PT IS CONFUSED, WITHDRAWN, AND HIGH FALL RISK. PT DENIES SUICIDAL OR HOMICIDAL IDEATION AT THIS TIME. SAFETY PRECAUTIONS IN PLACE. BED IN LOWEST LOCKED POSITION, SIDE RAILS RAISED, BED ALARM ON, AND CALL LIGHT WITHIN REACH. ALL NEEDS MET AT THIS TIME.
[2021-09-27 20:00] VITALS: BP 113/51
[2021-09-27] MEDS: ATORVASTATIN 40 MG TABLET PO SCH (21:07)
--- NOTE | 2021-09-28 06:41 | NUR ---
GPS RN CLOSING NOTE PT AWAKE IN BED. A/O X1. PT STABLE ON ROOM AIR. NO SOB OR S/S OF RESPIRATORY DISTRESS. BREATHING EVEN AND UNLABORED. NO COMPLAINTS OF PAIN AT THIS TIME. PT IS CONFUSED, WITHDRAWN, AND HIGH FALL RISK. PT DENIES SUICIDAL OR HOMICIDAL IDEATION AT THIS TIME. ALL DUE MEDS GIVEN ORDERED. SAFETY PRECAUTIONS IN PLACE AT ALL TIMES. BED IN LOWEST LOCKED POSITION, SIDE RAILS RAISED, BED ALARM ON, AND CALL LIGHT WITHIN REACH. ALL NEEDS MET AT THIS TIME AND WILL ENDORSE TO ONCOMING NURSE FOR TRACY.
--- NOTE | 2021-09-28 07:52 | NUR ---
SW Discharge Note: Patient will be discharged to long term facility [facility] located [address] [place] [address]; ([phone]). Plate Painter Apprentice spoke with Slime Manufacturing Plant Technician ([phone]) who stated patient will be accepted at facility today. Patient is alert and oriented x2 and is not able to plan for self-care. Patient denies any suicidal or homicidal ideations. Patient is aware and agreeable with discharge plans. Patients daughter Turner ([phone]) is aware and agreeable. Patient will continue to follow-up with (Psychiatrist) Dr. Kilgore located at [address] [address] [address]; ([phone]) and (Outside Plant Engineer) Dr. Pedro located at [address] [facility] [address] [address]; ([phone]). Patient presents with euthymic mood and congruent affect.
[2021-09-28 08:00] VITALS: BP 133/92
[2021-09-28] MEDS: QUETIAPINE FUMARATE 100 MG TABLET PO SCH (08:32)
[2021-09-28] MEDS: METOPROLOL SUCCINATE 50 MG TAB.SR.24H PO SCH (08:32)
[2021-09-28 08:33] VITALS: BP 133/92
[2021-09-28] MEDS: LOSARTAN POTASSIUM 50 MG TABLET PO SCH (08:33)
[2021-09-28] MEDS: ASPIRIN 81 MG TAB.CHEW PO SCH (08:33)
[2021-09-28] MEDS: ENSURE ENLIVE CHOC 237 ML CAN PO SCH (08:40)
[2021-09-28] MEDS: Z GUARD REMEDY 4 OZ OINT TP SCH (09:00)
--- NOTE | 2021-09-28 15:27 | NUR ---
Patient discharged to [facility] in stable condition.Compliant with medications ,cooperative with treatment plans Patient denies SI/HI/AVH .Behavior improved ,psychiatric [place] plans met ,medical plans differed for for continual monitoring .Educated pt about after care plan (Exit -care)and copy provided .Returned personal belongings to patient med list given report given to Nishant ENCINAS in facility .Vs stable ,no c/o pain .Layo DNP FOR and Shasha Streeter VIDEO G[employer] TECHNICIAN called back with discharge orders and prescriptions .Patient discharge at 1430 with ambulance.
== END 2021-09-28 14:30 | DRG 885 ==
LOC: ER 18:50 → GPS 09-13 09:00
PROVIDERS: ADMIT Psychiatry & Neurology Psychiatry; ATTEND Nurse Practitioner Acute Care
DX: F29 Unspecified psychosis not due to a substance or known physiological condition (principal); G93.49 Other encephalopathy; F23 Brief psychotic disorder; F03.90 Unspecified dementia, unspecified severity, without behavioral disturbance, psychotic disturbance, mood disturbance, and anxiety; Z20.822 Contact with and (suspected) exposure to COVID-19; I10 Essential (primary) hypertension; E78.5 Hyperlipidemia, unspecified; E11.9 Type 2 diabetes mellitus without complications; Z73.6 Limitation of activities due to disability; R27.8 Other lack of coordination; R53.1 Weakness; Z91.81 History of falling; F41.9 Anxiety disorder, unspecified; F32.A Depression, unspecified; Z91.19 Patient's noncompliance with other medical treatment and regimen; Z91.14 Patient's other noncompliance with medication regimen; Z79.899 Other long term (current) drug therapy; Z79.82 Long term (current) use of aspirin
CPT/HCPCS: 36415; 80048-TC; 80053-TC; 80061-TC; 80076-TC; 81001; 82962-TC; 85025-TC; 87086-TC; 97116-TC; 97530-TC; C9803; G0480; J1630; J1631; J7040